=== PATIENT | male | born 1990 | race Two or more races ===

== ENCOUNTER 2017-09-15 00:17 | Inpatient (IN) | payer MEDICAID ==
[2017-09-15] VITALS (7 sets, daily range): BP systolic 128–164; BP diastolic 81–101
[~2017-09-15] VITALS: Ht 180.3 cm; Wt 117.9 kg
[2017-09-15] MEDS ORDERED: NKM (00:36)
[2017-09-15] MEDS ORDERED: Morphine Sulfate 2mg/ml Inj IVP ONE (01:00)
[2017-09-15] MEDS ORDERED: Ketorolac 30mg Inj IV ONE (01:00)
[2017-09-15 02:23] LABS: APPEARANCE,URINE CLOUDY; KETONES,URINE NEGATIVE (NEGATIVE); PH,URINE 6.5 (4.5-8.0); PROTEIN,URINE 4+ (NEGATIVE); UROBILINOGEN,URINE 1 MG/DL (0.0-1.0)
[2017-09-15 02:29] LABS: LEUKOCYTE ESTERASE ,URINE 1+ (NEGATIVE); NITRITE,URINE NEGATIVE (NEGATIVE); RBC,URINE TNTC /HPF (0 - 0)
[2017-09-15 02:30] LABS: BACTERIA,URINE FEW /HPF; ICTOTEST POSITIVE
[2017-09-15 02:31] LABS: PROTHROMBIN TIME 10.3 SEC (9.30-11.50)
[2017-09-15 02:33] LABS: BASOPHILS % (AUTO) 0.9 % (0.0-2.0); EOSINOPHILS % (AUTO) 2.6 % (0.0-3.0); LYMPHOCYTES % (AUTO) 26.6 % (20.0-45.0); MEAN CORPUSCULAR HEMOGLOBIN 30.5 PG (27.0-31.0); MEAN CORPUSCULAR HGB CONC 34.6 G/DL (32.0-36.0); MEAN CORPUSCULAR VOLUME 88 FL (80-99); MEAN PLATELET VOLUME 6.4 FL (6.5-10.1); MONOCYTES % (AUTO) 5.9 % (1.0-10.0); PLATELET COUNT 429 K/UL (150-450); RED BLOOD COUNT 4.93 M/UL (4.70-6.10); RED CELL DISTRIBUTION WIDTH 10.9 % (11.6-14.8); WHITE BLOOD COUNT 13.3 K/UL (4.8-10.8)
[2017-09-15 02:50] LABS: ANION GAP 9 mmol/L (5-15); CALCIUM 9.6 MG/DL (8.5-10.1); CARBON DIOXIDE 27 MMOL/L (21-32); CHLORIDE 103 MMOL/L (98-107); GLOMERULAR FILTRATION RATE > 60 mL/min (>60); POTASSIUM 3.9 MMOL/L (3.5-5.1); SODIUM 139 MMOL/L (136-145)
[2017-09-15 02:55] LABS: ALANINE AMINOTRANSFERASE 27 U/L (12-78); ALBUMIN/GLOBULIN RATIO 0.9 (1.0-2.7); ASPARTATE AMINO TRANSFERASE 17 U/L (15-37); LIPASE 130 U/L (73-393); TOTAL PROTEIN 8.7 G/DL (6.4-8.2)
[2017-09-15] MEDS ORDERED: cefTRIAXone 1 GM in NS 55 ML IVPB ONE (06:15)
--- NOTE | 2017-09-15 06:30 | Emergency Room Report ---
History of Present Illness General Chief Complaint: Male Urogenital Problems Source: Patient Present Illness HPI The patient presents with hematuria. Started earlier today. He also has severe right testicular pain. He denies any swelling there. He's never had this before. The pain radiates from testicle to his flank on the right-hand side. Pain in testicle 10/10, constant, aching and sharp. No meds taken for this. A week ago the patient had fevers and sore throat. He was treated urgent care. He was given medication and apparently he took decreasing doses over several days. The day after he was seen he felt better. He thinks it was an antibiotic (sounds more like medrol). He doesn't know the name of the medication. The patient denies drugs alcohol. No trauma. No dysuria. No other bleeding disorders. No joint pain, change in bowels, dyspnea, chest pain, depression, rashes. Allergies: Coded Allergies: No Known Allergies (Unverified , 09/15/17) Patient History Past Medical History: see triage record Social History: Denies: alcohol use, drug use - see tox Social History Narrative at home Reviewed Nursing Documentation: PMH: Agreed, PSxH: Agreed Nursing Documentation-PMH Past Medical History: No Stated History Review of Systems All Other Systems: negative except mentioned in HPI Physical Exam Vital Signs Date Time Temp Pulse Resp B/P (MAP) Pulse Ox O2 Delivery O2 Flow Rate FiO2 09/15/17 00:29 97.9 83 16 141/90 99 Room Air Sp02 EP Interpretation: reviewed, normal General Appearance: well appearing, no apparent distress, GCS 15 Head: normocephalic Eyes: bilateral eye normal inspection, bilateral eye PERRL ENT: moist mucus membranes Neck: supple Respiratory: lungs clear, normal breath sounds Cardiovascular #1: regular rate, rhythm Cardiovascular #2: 2+ radial (R) Gastrointestinal: normal inspection, normal bowel sounds, non tender, no mass, non-distended, no hernia Genitourinary: normal inspection, penis normal, scrotum normal, other - testicle not tender Musculoskeletal: back normal, gait/station normal, normal range of motion Neurologic: alert, oriented x3, grossly normal Psychiatric: mood/affect normal Skin: normal inspection, warm/dry Medical Decision Making Diagnostic Impression: Primary Impression: Gross hematuria Additional Impressions: Amphetamine abuse Polycystic renal disease Leukocytosis Qualified Codes: D72.829 - Elevated white blood cell count, unspecified Ruled Out: Nephrolithiasis ER Course Patient presents with gross hematuria and testicular pain with sore throat prodrome. Ddx: stone, glomerulonephritis, mass, coagulopathy, testicular abnormality amongst others. Urgent evaluation with labs and ultrasound - renal and testicular. Will treat with IV hydration, analgesia. Testicular pain seems more referred. The patient is improved. Ultrasound showed bilateral renal cysts there right small renal stone (suggested) high up in the calyx. There is no evidence of hydronephrosis or obstruction. The patient received aggressive hydration. Repeat urinalysis still shows gross hematuria. His H&H is normal. Leukocytosis - rocephin begun. Still with gross hematuria. Admit med. Contact Dr. Miguel. Contacting urologist recreation director. Discussed with Dr. Brambila who agrees to see patient. CT abdomen and pelvis ordered. Laboratory Tests Test 09/15/17 00:45 09/15/17 02:02 Urine Color Luna Urine Appearance Cloudy Urine pH 6.5 (4.5-8.0) Urine Specific [place] 1.025 (1.005-1.035) Urine Protein 4+ (NEGATIVE) H Urine Glucose (UA) Negative (NEGATIVE) Urine Ketones Negative (NEGATIVE) Urine Occult Blood 5+ (NEGATIVE) H Urine Nitrite Negative (NEGATIVE) Urine Bilirubin 1+ (NEGATIVE) H Urine Ictotest Positive Urine Urobilinogen 1 MG/DL (0.0-1.0) H Urine Leukocyte Esterase 1+ (NEGATIVE) H Urine RBC Tntc /HPF (0 - 0) H Urine WBC 2-4 /HPF (0 - 0) Urine Squamous Epithelial Cells None /LPF (NONE/OCC) Urine Bacteria Few /HPF (NONE) Urine Opiates Screen Negative (NEGATIVE) Urine Barbiturates Screen Negative (NEGATIVE) Phencyclidine (PCP) Screen Negative (NEGATIVE) Urine Amphetamines Screen Positive (NEGATIVE) H Urine Benzodiazepines Screen Negative (NEGATIVE) Urine Cocaine Screen Negative (NEGATIVE) Urine Marijuana (THC) Screen Positive (NEGATIVE) H White Blood Count 13.3 K/UL (4.8-10.8) H Red Blood Count 4.93 M/UL (4.70-6.10) Hemoglobin 15.0 G/DL (14.2-18.0) Hematocrit 43.4 % (42.0-52.0) Mean Corpuscular Volume 88 FL (80-99) Mean Corpuscular Hemoglobin 30.5 PG (27.0-31.0) Mean Corpuscular Hemoglobin Concent 34.6 G/DL (32.0-36.0) Red Cell Distribution Width 10.9 % (11.6-14.8) L Platelet Count 429 K/UL (150-450) Mean Platelet Volume 6.4 FL (6.5-10.1) L Neutrophils (%) (Auto) 64.0 % (45.0-75.0) Lymphocytes (%) (Auto) 26.6 % (20.0-45.0) Monocytes (%) (Auto) 5.9 % (1.0-10.0) Eosinophils (%) (Auto) 2.6 % (0.0-3.0) Basophils (%) (Auto) 0.9 % (0.0-2.0) Prothrombin Time 10.3 SEC (9.30-11.50) Prothrombin Time INR 1.0 (0.9-1.1) PTT 28 SEC (23-33) Sodium Level 139 MMOL/L (136-145) Potassium Level 3.9 MMOL/L (3.5-5.1) Chloride Level 103 MMOL/L (98-107) Carbon Dioxide Level 27 MMOL/L (21-32) Anion Gap 9 mmol/L (5-15) Blood Urea Nitrogen 17 mg/dL (7-18) Creatinine 1.0 MG/DL (0.55-1.30) Estimate Glomerular Filtration Rate > 60 mL/min (>60) Glucose Level 98 MG/DL (74-106) Calcium Level 9.6 MG/DL (8.5-10.1) Total Bilirubin 0.3 MG/DL (0.2-1.0) Aspartate Amino Transferase (AST) 17 U/L (15-37) Alanine Aminotransferase (ALT) 27 U/L (12-78) Alkaline Phosphatase 73 U/L (46-116) Total Creatine Kinase 85 U/L (26-308) Total Protein 8.7 G/DL (6.4-8.2) H Albumin 4.2 G/DL (3.4-5.0) Globulin 4.5 g/dL Albumin/Globulin Ratio 0.9 (1.0-2.7) L Lipase 130 U/L (73-393) CT/MRI/US Diagnostic Results CT/MRI/US Diagnostic Results #1: Imaging Test Ordered: renal US Impression multiple renal cysts. No obstruction. Small stone R calyx. CT/MRI/US Diagnostic Results #2: Imaging Test Ordered: abd pelvis w/wo contrast Impression Impression: Delayed phase images demonstrating filling defects in the right renal collecting system. The filling defects could represent urothelial tumor or blood clots. Slightly high attenuation on the precontrast images and the lack of contrast enhancement somewhat favors the former, but the latter is not completely excludable. Retrograde pyelography may be useful for further evaluation Multiple renal cysts bilaterally. Given the fairly large amount of preserved renal parenchyma, it is uncertain as to whether this represents adult polycystic kidney disease, versus just multiple benign renal cysts. However, of the large size of both kidneys suggests the latter. Correlation with clinical and family history is recommended. No definite solid renal parenchymal mass demonstrated. No evidence of renal ureteral calculi Slightly high attenuation material within the bladder likely reflects bloody urine, corresponding to the clinical history Mild splenomegaly Colonic diverticulosis Small fat-containing right inguinal hernia incidentally noted. CT/MRI/US Diagnostic Results #3: Imaging Test Ordered: testicular us Impression normal exam Status: improved Disposition: ADMITTED INPATIENT Condition: Serious Referrals: NOT CHOSEN ELIA/,REFERRING (PCP) Vick Cruz M.D. Sep 15, 2017 06:30
--- NOTE | 2017-09-15 09:32 | Diagnostic Imaging Report ---
Indication: Flank pain. Injury appears the right testicular pain, right-sided pain Technique: No oral contrast, per protocol. Precontrast spiral acquisitions obtained through the abdomen and pelvis. IV administration nonionic contrast. Multiphasic spiral acquisitions obtained through the abdomen and pelvis Multiplanar reconstructions were generated. Total dose length product 4955 +633 mGycm. CTDIvol(s) 24, 8, 73, 22, 25, 25, 19 mGy. Radiation dose was minimized using automated exposure control Comparison: None Findings: The kidneys demonstrate innumerable cysts of various sizes bilaterally. On later phase images, contrast within the collecting system outlines filling defects within the right renal collecting system. The material within the right collecting system is hyperattenuating on the precontrast images, does not significantly enhance. The material somewhat dilates the renal pelvis. Dense material, probably milk of calcium, is seen layering within one of the cysts. A slightly higher attenuation area in the lower pole is demonstrated on the late phase images to represent part of the renal collecting system. No definite solid mass demonstrated. No renal or ureteral calculi. No ureteral dilatation. Normal caliber left renal collecting system. Bladder contents are somewhat high in attenuation, could indicate bloody urine within the bladder given clinical history. The left kidney measures 15.5 cm in length. The right kidney measures 18 cm in length. There is a small fat-containing right inguinal hernia. The appendix is normal. There are a few colonic diverticula. No evidence of diverticulitis. No small bowel distention. The liver, gallbladder, bile ducts, pancreas are unremarkable. The spleen is mildly enlarged, measuring 14 cm long axis dimension. The adrenals are unremarkable. The included lung bases are clear. The bones are unremarkable. Impression: Delayed phase images demonstrating filling defects in the right renal collecting system. The filling defects could represent urothelial tumor or blood clots. Slightly high attenuation on the precontrast images and the lack of contrast enhancement somewhat favors the former, but the latter is not completely excludable. Retrograde pyelography may be useful for further evaluation Multiple renal cysts bilaterally. Given the fairly large amount of preserved renal parenchyma, it is uncertain as to whether this represents adult polycystic kidney disease, versus just multiple benign renal cysts. However, of the large size of both kidneys suggests the latter. Correlation with clinical and family history is recommended. No definite solid renal parenchymal mass demonstrated. No evidence of renal ureteral calculi Slightly high attenuation material within the bladder likely reflects bloody urine, corresponding to the clinical history Mild splenomegaly Colonic diverticulosis Small fat-containing right inguinal hernia incidentally noted. The CT scanner at [facility] is accredited by the [employer] and the scans are performed using protocols designed to limit radiation exposure to as low as reasonably achievable to attain images of sufficient resolution adequate for diagnostic evaluation.
--- NOTE | 2017-09-15 12:10 | Diagnostic Imaging Report ---
Indication: Flank pain Technique: Grayscale and duplex images of the kidneys, retroperitoneum, and bladder were obtained. Comparison:None Findings: Imaging is suboptimal due to patient body habitus. Right kidney measures 16 cm in length. Left kidney measures 14.7 cm in length. Both kidneys demonstrate normal echogenicity. No hydronephrosis. There are multiple cysts bilaterally. There are bright echoes in the bilateral renal sinuses. Normal inferior vena cava. Bladder is nondistended. Impression: Multiple bilateral renal cysts Bright echoes in the bilateral renal sinuses. Of uncertain significance, as no sinus calculi are demonstrated on subsequent CT scan. Negative for hydronephrosis
--- NOTE | 2017-09-15 12:11 | Diagnostic Imaging Report ---
Indications: Right-sided pain Technique: Grayscale and duplex images of the scrotum Comparison:None Findings:The right testicle measures 3.9cm in length. It demonstrates normal echogenicity. Normal Doppler flow. Normal epididymis. There is a very small hydrocele The left testicle measures 3.1 cm in length. It demonstrates normal echogenicity and normal Doppler flow. Normal epididymis. There is very small hydrocele Impression: Small bilateral hydroceles Otherwise negative
[2017-09-15] MEDS ORDERED: Morphine Sulfate 2mg/ml Inj IVP PRN (12:30)
[2017-09-15] MEDS ORDERED: Norco 10mg/325mg tab ORAL PRN (14:00)
[2017-09-15] MEDS ORDERED: cefTRIAXone 1 GM in D5W 55 ML IVPB SCH (15:00)
[2017-09-15] MEDS ORDERED: Morphine Sulfate 4mg/ml Inj IVP PRN (15:15)
--- NOTE | 2017-09-15 15:28 | Consultation ---
History of Present Illness General Date patient seen: Sep 15, 2017 Time patient seen: 14:30 Chief Complaint: Male Urogenital Problems Referring physician: Lamont Reason for Consultation: right flank pain Present Illness HPI 27 yo male with acute onset right flank pain and gross hematuria. Never happened before. Very uncomfortable today and yesterday. Still having hematuria, but states it is clearing. Never had flank pain before. Allergies: Coded Allergies: No Known Allergies (Unverified , 09/15/17) Medication History Scheduled No Known Medications* (NKM - No Known Medications*), 0 ., (Reported) Patient History History Provided By: Patient, Medical Record Healthcare decision maker Resuscitation status Full Code Advanced Directive on File Past Medical/Surgical History Past Medical/Surgical History: (1) Renal cyst (2) Gross hematuria Review of Systems All Other Systems: negative except mentioned in HPI Physical Exam General Appearance: moderate distress HEENT: atraumatic Neck: supple Respiratory/Chest: lungs clear Cardiovascular/Chest: normal rate Abdomen: soft Last 24 Hour Vital Signs Date Time Temp Pulse Resp B/P (MAP) Pulse Ox O2 Delivery O2 Flow Rate FiO2 09/15/17 12:30 97.9 82 18 135/81 97 Room Air 09/15/17 12:30 Room Air 09/15/17 10:51 98.0 87 20 137/89 98 09/15/17 10:07 97.7 86 16 135/86 97 Room Air 09/15/17 09:09 97.7 86 16 135/86 97 Room Air 09/15/17 06:42 97.8 87 16 132/83 96 Room Air 09/15/17 04:35 97.8 09/15/17 04:34 97.8 09/15/17 01:12 97.9 74 16 133/86 99 Room Air 09/15/17 00:29 97.9 83 16 141/90 99 Room Air Laboratory Tests Test 09/15/17 00:45 09/15/17 02:02 Urine Color Luna Urine Appearance Cloudy Urine pH 6.5 (4.5-8.0) Urine Specific [place] 1.025 (1.005-1.035) Urine Protein 4+ (NEGATIVE) H Urine Glucose (UA) Negative (NEGATIVE) Urine Ketones Negative (NEGATIVE) Urine Occult Blood 5+ (NEGATIVE) H Urine Nitrite Negative (NEGATIVE) Urine Bilirubin 1+ (NEGATIVE) H Urine Ictotest Positive Urine Urobilinogen 1 MG/DL (0.0-1.0) H Urine Leukocyte Esterase 1+ (NEGATIVE) H Urine RBC Tntc /HPF (0 - 0) H Urine WBC 2-4 /HPF (0 - 0) Urine Squamous Epithelial Cells None /LPF (NONE/OCC) Urine Bacteria Few /HPF (NONE) Urine Opiates Screen Negative (NEGATIVE) Urine Barbiturates Screen Negative (NEGATIVE) Phencyclidine (PCP) Screen Negative (NEGATIVE) Urine Amphetamines Screen Positive (NEGATIVE) H Urine Benzodiazepines Screen Negative (NEGATIVE) Urine Cocaine Screen Negative (NEGATIVE) Urine Marijuana (THC) Screen Positive (NEGATIVE) H White Blood Count 13.3 K/UL (4.8-10.8) H Red Blood Count 4.93 M/UL (4.70-6.10) Hemoglobin 15.0 G/DL (14.2-18.0) Hematocrit 43.4 % (42.0-52.0) Mean Corpuscular Volume 88 FL (80-99) Mean Corpuscular Hemoglobin 30.5 PG (27.0-31.0) Mean Corpuscular Hemoglobin Concent 34.6 G/DL (32.0-36.0) Red Cell Distribution Width 10.9 % (11.6-14.8) L Platelet Count 429 K/UL (150-450) Mean Platelet Volume 6.4 FL (6.5-10.1) L Neutrophils (%) (Auto) 64.0 % (45.0-75.0) Lymphocytes (%) (Auto) 26.6 % (20.0-45.0) Monocytes (%) (Auto) 5.9 % (1.0-10.0) Eosinophils (%) (Auto) 2.6 % (0.0-3.0) Basophils (%) (Auto) 0.9 % (0.0-2.0) Prothrombin Time 10.3 SEC (9.30-11.50) Prothromb Time International Ratio 1.0 (0.9-1.1) Activated Partial Thromboplast Time 28 SEC (23-33) Sodium Level 139 MMOL/L (136-145) Potassium Level 3.9 MMOL/L (3.5-5.1) Chloride Level 103 MMOL/L (98-107) Carbon Dioxide Level 27 MMOL/L (21-32) Anion Gap 9 mmol/L (5-15) Blood Urea Nitrogen 17 mg/dL (7-18) Creatinine 1.0 MG/DL (0.55-1.30) Estimat Glomerular Filtration Rate > 60 mL/min (>60) Glucose Level 98 MG/DL (74-106) Calcium Level 9.6 MG/DL (8.5-10.1) Total Bilirubin 0.3 MG/DL (0.2-1.0) Aspartate Amino Transf (AST/SGOT) 17 U/L (15-37) Alanine Aminotransferase (ALT/SGPT) 27 U/L (12-78) Alkaline Phosphatase 73 U/L (46-116) Total Creatine Kinase 85 U/L (26-308) Total Protein 8.7 G/DL (6.4-8.2) H Albumin 4.2 G/DL (3.4-5.0) Globulin 4.5 g/dL Albumin/Globulin Ratio 0.9 (1.0-2.7) L Lipase 130 U/L (73-393) Height (Feet): 5 Height (Inches): 11.00 Weight (Pounds): 260 Medications Current Medications Medications (Trade) Dose Ordered Sig/Andrae Route PRN Reason Start Time Stop Time Status Last Admin Dose Admin Acetaminophen (Tylenol) 650 mg Q6H PRN ORAL Mild Pain/Temp > 100.5 09/15/17 10:35 10/15/17 10:34 Acetaminophen/ Hydrocodone Bitart ([place] 10/325) 1 ea Q6H PRN ORAL Moderate Breakthru Pain (5-7) 09/15/17 14:00 09/22/17 13:59 09/15/17 14:00 Ceftriaxone Sodium 1 gm/ Dextrose 55 ml @ 110 mls/hr Q24H IVPB 09/15/17 15:00 09/22/17 14:59 Morphine Sulfate (Morphine Sulfate) 2 mg Q4H PRN IVP Severe Pain (Pain Scale 7-10) 09/15/17 12:30 09/22/17 12:29 09/15/17 13:03 Morphine Sulfate (Morphine Sulfate) 4 mg Q4H PRN IVP SEVERE BREAKTHROUGH PAIN 09/15/17 15:15 09/22/17 15:14 09/15/17 15:09 Sodium Chloride 1,000 ml @ 100 mls/hr Q10H IV 09/15/17 16:00 10/15/17 15:[address]: bilateral cystic disease in both kidneys, high density material in lower pole collecting system and renal pelvis. Mild hydronephrosis Assessment/Plan Status: stable Assessment/Plan 27 yo male with likely congenital polycycstic kidney disease. Pain is likely from trying to pass right collecting system blood/clot. Cystic disease is highly likely congenital. Seems likely that patient ruptured a cyst. Counseled patient this will clear and improve with hydration and pain medication. 1. IVF 2. pain medication 3. outpatient nephrology follow up. Octaviano Cunha M.D. Sep 15, 2017 15:28
[2017-09-15] MEDS: NS w/KCl 20mEq 1,000 ML IV SCH (15:51)
[2017-09-15] MEDS ORDERED: HYDROmorphone 1mg/ml Carpuject IVP PRN ×2 (16:45)
[2017-09-15] MEDS: HYDROmorphone 1mg/ml Carpuject IVP PRN ×2 (19:26→22:51)
--- NOTE | 2017-09-15 22:02 | Consultation ---
DATE OF CONSULTATION: 09/15/2017 INFECTIOUS DISEASE CONSULTATION CONSULTING PHYSICIAN: Pradip Montague M.D. PRIMARY ATTENDING PHYSICIAN: Arely Miguel M.D. REASON FOR CONSULTATION: Hematuria and UTI. HISTORY OF PRESENT ILLNESS: This is a 27-year-old male admitted today from home complaining of hematuria. The patient had sore throat one week before admission. Three days before admission, he developed hematuria. The next day, also developed right flank pain. Does not have any fever or chills or any other systemic symptoms. PAST MEDICAL HISTORY: Insignificant. ALLERGIES: No known drug allergies. MEDICATIONS: Started on ceftriaxone, morphine, and Tylenol. SOCIAL HISTORY: Has a a partner. Denies alcohol, drug abuse, or smoking. REVIEW OF SYSTEMS: No fever. No chills. He has right flank pain. Urine is bright red. PHYSICAL EXAMINATION: VITAL SIGNS: Temperature 98, pulse 87, and blood pressure 137/89. GENERAL APPEARANCE: No acute distress. HEAD AND NECK: Pale conjunctivae. No oral lesion. HEART: S1 and S2. Regular. LUNGS: Clear. ABDOMEN: Soft. There is tenderness in the right costovertebral angle. EXTREMITIES: Showed no edema. LABORATORY AND DIAGNOSTIC DATA: Labs, WBC is 13.2, hemoglobin 15, hematocrit 43.4, and platelets 429,000. Sodium 139, potassium 3.9, chloride 103, bicarbonate 27, BUN 17, and creatinine 1. Total protein is 8.7. Albumin is 4.2. The patient had testicular ultrasound that showed small bilateral hydroceles. CT scan of the abdomen and pelvis showed right collecting system filling defects, maybe tumor or blood clots. Urine toxicology was positive for amphetamine and marijuana. IMPRESSION: Gross hematuria. It is not clear that it is post streptococcal or infectious or tumor in origin. Further evaluation is pending. The patient seems to have substance abuse with amphetamine and marijuana, has elevated total protein. RECOMMENDATION: We will continue with Rocephin. We will send for urine culture. We will ask for HIV test. At the end of my exam, I thank Dr. Miguel, for involving me in the care of this patient. Pradip Montague M.D. DR: LYNDA JOB#: [id number] CC:
[2017-09-16] VITALS: BP 135/76
[2017-09-16] MEDS: NS w/KCl 20mEq 1,000 ML IV SCH ×2 (01:31→12:46)
[2017-09-16] MEDS: HYDROmorphone 1mg/ml Carpuject IVP PRN ×2 (01:51→05:49)
[2017-09-16 04:16] VITALS: BP 138/85
--- NOTE | 2017-09-16 06:15 | History and Physical Report ---
DATE OF ADMISSION: 09/15/2017 HISTORY OF PRESENT ILLNESS: The patient comes in with gross hematuria, leukocytosis, and history of drug abuse as well. The patient states that he had hematuria for the past two days. The patient has testicular pain as well, has a history of drug abuse and also has dysuria. No fevers or chills. No nausea, vomiting, or diarrhea. No abdominal pain. PAST MEDICAL HISTORY: History of drug abuse. PAST SURGICAL HISTORY: No surgeries. MEDICATIONS: None. ALLERGIES: No known allergies. SOCIAL HISTORY: Denies smoking. Denies history of alcohol abuse. FAMILY HISTORY: None. REVIEW OF SYSTEMS: HEENT: Denies headaches. RESPIRATORY: Denies shortness of breath. Denies cough. CARDIOVASCULAR: Denies chest pain or orthopnea. GASTROINTESTINAL: No nausea, vomiting, or diarrhea. GENITOURINARY: Does have hematuria for three days and dysuria and testicular pain for three days. CENTRAL NERVOUS SYSTEM: No change in vision or speech pattern. PHYSICAL EXAMINATION: VITAL SIGNS: Temperature is 97.7 degrees, pulse 86, and blood pressure 135/86. HEENT: PERRLA. NECK: Supple. No lymphadenopathy. CHEST: Clear to auscultation. GASTROINTESTINAL: Soft, nontender, and nondistended. No organomegaly. EXTREMITIES: No edema. NEUROLOGIC: Moves all 4 extremities. Sensory intact to light touch. Reflexes equal on both sides. LABORATORY DATA: WBC of 13.2, hemoglobin of 15, and platelets 429. Sodium 139, potassium 3.9, BUN of 19, and creatinine of 1. ASSESSMENT AND PLAN: 1. Hematuria and dysuria. 2. Leukocytosis. 3. History of drug abuse. I have asked Dr. Cunha, Dr. Melissa, and Dr. Carmen to see the patient for the UTI, for the hematuria, for the pain syndrome, and for the treatment of the pain. Arely Miguel M.D. DR: CHEY JOB#: [id number] CC:
[2017-09-16 08:06] VITALS: BP 120/75
--- NOTE | 2017-09-16 09:45 | Infectious Diseases Prog Note ---
Assessment/Plan Assessment/Plan A; Gross hematuria Polycystic kidney disease Leukocytosis Polysubstance abuse P: May discontinue Rocephin Subjective ROS Limited/Unobtainable: Yes Allergies: Coded Allergies: No Known Allergies (Unverified , 09/15/17) Objective Vital Signs Last 24 Hour Vital Signs Date Time Temp Pulse Resp B/P (MAP) Pulse Ox O2 Delivery O2 Flow Rate FiO2 09/16/17 08:06 98.6 101 21 120/75 97 Room Air 09/16/17 04:16 98.1 88 20 138/85 96 Room Air 09/16/17 00:00 98.1 76 20 135/76 96 Room Air 09/15/17 20:00 97.7 77 20 164/91 100 Room Air 09/15/17 16:13 Room Air 09/15/17 16:13 98.0 81 20 128/101 97 Room Air 09/15/17 12:30 97.9 82 18 135/81 97 Room Air 09/15/17 12:30 Room Air 09/15/17 10:51 98.0 87 20 137/89 98 09/15/17 10:07 97.7 86 16 135/86 97 Room Air Height (Feet): 5 Height (Inches): 11.00 Weight (Pounds): 260 General Appearance: no acute distress HEENT: mucous membranes moist Respiratory/Chest: lungs clear Cardiovascular: normal rate Abdomen: soft, non tender Extremities: no edema Skin: no rash Neurologic/Psychiatric: other - sleeping , sedated Microbiology Date/Time Source Procedure Growth Status 09/15/17 15:20 Urine,Clean Catch Urine Culture - Preliminary NO GROWTH Resulted Laboratory Tests Test 09/16/17 05:15 HIV (1&2) Antibody Rapid Negative (NEGATIVE) Current Medications Medications (Trade) Dose Ordered Sig/Andrae Route PRN Reason Start Time Stop Time Status Last Admin Dose Admin Acetaminophen (Tylenol) 650 mg Q6H PRN ORAL Mild Pain/Temp > 100.5 09/15/17 10:35 10/15/17 10:34 Acetaminophen/ Hydrocodone Bitart ([place] 10/325) 1 ea Q6H PRN ORAL Moderate Breakthru Pain (5-7) 09/15/17 14:00 09/22/17 13:59 09/15/17 14:00 Ceftriaxone Sodium 1 gm/ Dextrose 55 ml @ 110 mls/hr Q24H IVPB 09/15/17 15:00 09/22/17 14:59 09/15/17 16:13 Hydromorphone HCl (Dilaudid) 1 mg Q3H PRN IVP Severe Pain (Pain Scale 7-10) 09/15/17 19:30 09/22/17 19:29 09/16/17 05:49 Sodium Chloride 1,000 ml @ 100 mls/hr Q10H IV 09/15/17 16:00 10/15/17 15:59 09/16/17 01:31 GIOVANA ZAYAS Sep 16, 2017 09:45
--- NOTE | 2017-09-16 10:41 | Consultation ---
History of Present Illness General Date patient seen: Sep 16, 2017 Chief Complaint: Male Urogenital Problems Referring physician: Lamont Reason for Consultation: right flank pain Present Illness Allergies: Coded Allergies: No Known Allergies (Unverified , 09/15/17) Medication History Scheduled No Known Medications* (NKM - No Known Medications*), 0 ., (Reported) Patient History Healthcare decision maker Resuscitation status Full Code Advanced Directive on File Physical Exam Last 24 Hour Vital Signs Date Time Temp Pulse Resp B/P (MAP) Pulse Ox O2 Delivery O2 Flow Rate FiO2 09/16/17 08:06 98.6 101 21 120/75 97 Room Air 09/16/17 04:16 98.1 88 20 138/85 96 Room Air 09/16/17 00:00 98.1 76 20 135/76 96 Room Air 09/15/17 20:00 97.7 77 20 164/91 100 Room Air 09/15/17 16:13 Room Air 09/15/17 16:13 98.0 81 20 128/101 97 Room Air 09/15/17 12:30 97.9 82 18 135/81 97 Room Air 09/15/17 12:30 Room Air 09/15/17 10:51 98.0 87 20 137/89 98 Laboratory Tests Test 09/16/17 05:15 HIV (1&2) Antibody Rapid Negative (NEGATIVE) Microbiology Date/Time Source Procedure Growth Status 09/15/17 15:20 Urine,Clean Catch Urine Culture - Preliminary NO GROWTH Resulted Height (Feet): 5 Height (Inches): 11.00 Weight (Pounds): 260 Medications Current Medications Medications (Trade) Dose Ordered Sig/Andrae Route PRN Reason Start Time Stop Time Status Last Admin Dose Admin Acetaminophen (Tylenol) 650 mg Q6H PRN ORAL Mild Pain/Temp > 100.5 09/15/17 10:35 10/15/17 10:34 Acetaminophen/ Hydrocodone Bitart (Axtell 10/325) 1 ea Q6H PRN ORAL Moderate Breakthru Pain (5-7) 09/15/17 14:00 09/22/17 13:59 09/15/17 14:00 Hydromorphone HCl (Dilaudid) 1 mg Q3H PRN IVP Severe Pain (Pain Scale 7-10) 09/15/17 19:30 09/22/17 19:29 09/16/17 05:49 Sodium Chloride 1,000 ml @ 100 mls/hr Q10H IV 09/15/17 16:00 10/15/17 15:59 09/16/17 01:31 Assessment/Plan Assessment/Plan (1) Congenital Polycystic Kidney disease (2) Intractable flank pin (3) Poly substance abuse Seen dictated. GENA FONG Sep 16, 2017 10:41
[2017-09-16 11:47] VITALS: BP 151/85
--- NOTE | 2017-09-16 13:13 | General Progress Note ---
Assessment/Plan Problem List: (1) Amphetamine abuse ICD Codes: F15.10 - Other stimulant abuse, uncomplicated SNOMED: 93058348 (2) Gross hematuria ICD Codes: R31.0 - Gross hematuria SNOMED: 081605936 Status: progressing Assessment/Plan afebrile hematurea treatment per urologist reviewed chart and labs Subjective ROS Limited/Unobtainable: Yes Allergies: Coded Allergies: No Known Allergies (Unverified , 09/15/17) Objective Last 24 Hour Vital Signs Date Time Temp Pulse Resp B/P (MAP) Pulse Ox O2 Delivery O2 Flow Rate FiO2 09/16/17 11:47 97.3 78 20 151/85 99 Room Air 09/16/17 08:06 98.6 101 21 120/75 97 Room Air 09/16/17 04:16 98.1 88 20 138/85 96 Room Air 09/16/17 00:00 98.1 76 20 135/76 96 Room Air 09/15/17 20:00 97.7 77 20 164/91 100 Room Air 09/15/17 16:13 Room Air 09/15/17 16:13 98.0 81 20 128/101 97 Room Air Intake and Output 09/16/17 09/17/17 19:00 07:00 Intake Total 500 ml Balance 500 ml IV Total 500 ml Laboratory Tests 09/16/17 05:15: HIV (1&2) Antibody Rapid Negative Height (Feet): 5 Height (Inches): 11.00 Weight (Pounds): 260 Arely Miguel MD Sep 16, 2017 13:13
[2017-09-16] MEDS ORDERED: Tubing IV Secondary IV ONE (16:14)
--- NOTE | 2017-09-17 15:15 | Consultation ---
DATE OF CONSULTATION: 09/16/2017 PAIN MANAGEMENT CONSULTATION CONSULTING PHYSICIAN: Hayley Melissa M.D. REFERRING PHYSICIAN: Arely Miguel M.D. PHYSICIAN MANAGER OF PURCHASING: Armaan Astorga CHIEF COMPLAINT: Right-sided flank pain. HISTORY OF PRESENT ILLNESS: This is a 27-year-old male, who is being seen on the Med/Surg floor of [facility] for initial comprehensive pain management consultation. The patient has been having pain in the right flank due to congenital polycystic kidney disease and was admitted under the care of Dr. Miguel. He complains of severe pain, rating at 10/10. Started on Motrin with no pain relief. Increased Dilaudid 1 mg IV every 3 hours as needed for severe pain. PAST MEDICAL HISTORY: Kidney disease. PAST SURGICAL HISTORY: Denies. MEDICATIONS: None. ALLERGIES: No known drug allergies. SOCIAL HISTORY: In the past had marijuana and amphetamine. REVIEW OF SYSTEMS: Denies rash, fever, chills, sweating, dizziness, drowsiness, or change in his weight. No shortness of breath, chest pain, palpitations, or cough. No nausea, vomiting, diarrhea, or blood in the stool or urine. No bowel or bladder incontinence. No dysuria. He is complaining of right-sided flank pain. PHYSICAL EXAMINATION: GENERAL: Alert, awake, and oriented. VITAL SIGNS: Blood pressure 110/75, heart rate is 86, respiratory rate 21, and temperature 98.6 degrees Fahrenheit. HEENT: PERRLA. NECK: Range of motion is full in all directions. No tenderness to paracervical muscles. No adenopathy. LUNGS: Decreased breath sounds bilaterally. HEART: Regular. ABDOMEN: Obese. BACK: Range of motion is decreased in flexion and extension. EXTREMITIES: Upper extremity range of motion is full in all directions. Motor is intact. No cyanosis. No clubbing. No edema. Sensory is intact. Reflexes are unobtainable. No adenopathy. Lower extremity range of motion is full in all directions. Motor is intact. No cyanosis. No clubbing. No edema. Sensory is intact. Reflexes are unobtainable. No adenopathy. ASSESSMENT AND PLAN: This is a 27-year-old male with congenital polycystic kidney disease, intractable flank pain, and polysubstance abuse. The patient will be continued on Dilaudid 1 mg IV every three hours as needed for severe pain. The patient was discussed with Dr. Melissa and Dr. Melissa concurred. We will follow the patient. Thank you very much for the courtesy of this consultation. Hayley Melissa M.D. SHANI Astorga DR: Shahnaz JOB#: [id number] CC: GOMEZ
--- NOTE | 2017-09-23 18:45 | Discharge Summary 2 SIG ---
DATE OF ADMISSION: 09/15/2017 DATE OF DISCHARGE: 09/16/2017 CONSULTANTS: 1. Hayley Melissa M.D. 2. Pradip Montague M.D. 3. Octaviano Cunha M.D. BRIEF HOSPITAL COURSE: The patient is a 27-year-old male with a history of drug abuse presented to ED complaining of hematuria that started the day of admission. He also had severe testicular pain, but denied swelling, pain radiates from the testicle to the right flank and was 10/10 in intensity. The pain was described to be constant, sharp and aching. He had a fever and sore throat a week ago where he was treated at an urgent care. He was given medication and apparently took decreased doses over several days. He does not know the name of the medication. On evaluation at ED, ultrasound showed bilateral renal cysts. There is a small right renal stone, high up in the calyx. There is no evidence of hydronephrosis or obstruction. He was given aggressive IV hydration. Urinalysis showed hematuria, although hemoglobin and hematocrit was stable. He had slight leukocytosis and Rocephin was started and he was admitted for evaluation of hematuria. Urologist was consulted. Pain was assessed to be likely from a passing blood/clot in the right collecting system. He has likely congenital polycystic kidney disease and likely with the ruptured cyst. He was counseled that this will eventually clear and improved with hydration and pain medications. He was seen by pain management. He was initially started with Motrin with no pain relief. Dilaudid was increased to 1 mg intravenous q.3 h. IV antibiotic was eventually discontinued. He was eventually discharged home. IMAGING DONE: 1. Testicular ultrasound showed small bilateral hydrocele, otherwise negative. 2. Renal ultrasound showed multiple bilateral renal cyst with bright echoes and bilateral renal sinuses. Negative for hydronephrosis. 3. Abdominal and pelvic CT showed on delayed phased imaging demonstrating filling defects in the right renal collecting system; multiple renal cyst bilaterally. There was no definite solid parenchymal renal mass demonstrated. No evidence of renal or ureteral calculi. FINAL DIAGNOSES: 1. Acute gross hematuria. 2. Likely congenital polycystic kidney disease with a ruptured cyst. 3. Substance abuse. 4. Leukocytosis. DISPOSITION: The patient was discharged home. Follow-up with PMD. Arely Miguel M.D. I have been assigned to dictate discharge summary on this account and I was not involved in the patient's management. Estefani Sage N.P. DR: CLIFTON JOB#: [id number] CC: GOMEZ
== END 2017-09-16 16:15 | disposition home or self-care (01) | DRG 468 ==
LOC: EMR 00:50 → 4E 06:52 → EDBEDREQ 07:19
DX: Q61.3 Polycystic kidney, unspecified (principal); F19.10 Other psychoactive substance abuse, uncomplicated; R31.0 Gross hematuria
CPT/HCPCS: 36415; 74178; 76775; 76870; 80053; 80307; 81003; 82550; 83690; 85025; 85610; 85730; 86703; 87086; 99285; J2405